=== PATIENT | female | born 1990 | race Caucasian/White ===

== ENCOUNTER 2021-06-03 17:01 | Emergency (ER) | payer MEDICAID ==
--- NOTE | 2021-06-03 17:32 | EDM.PDOC ---
ED HPI GENERAL MEDICAL PROBLEM - General Chief Complaint: General Stated Complaint: COUGH Time Seen by Provider: 06/03/21 17:32 Source of Information: Reports: Patient, RN Notes Reviewed History Limitations: Reports: No Limitations - History of Present Illness INITIAL COMMENTS - FREE TEXT/NARRATIVE: Lucia presents today with complaints of cough and green mucus production for th e past 7 days. She complains of chills and the sweats off and on. she denies SOB, chest pain, dizziness, syncope, palpitations, nausea, vomiting, change in bowel/bladder or other concerns. Lucia denies use of any OTC medications or treatments for her illness. Back Pain Score (Numeric/FACES): 10 - Related Data Allergies Allergy/AdvReac Type Severity Reaction Status Date / Time No Known Allergies Allergy Verified 06/03/21 17:27 Home Meds: Home Meds NK [No Known Home Meds] 06/03/21 [History] Social & Family History - Recreational Drug Use Recreational Drug Use: Yes Drug Use in Last 12 Months: No Recreational Drug Type: Reports: Amphetamines (Speed), Methamphetamine Recreational Drug Last Use: 2 years ago ED ROS GENERAL - Review of Systems Review Of Systems: See Below Constitutional: Reports: Chills, Diaphoresis. Denies: Fever, Malaise, Weakness, Weight Loss HEENT: Denies: Ear Discharge, Ear Pain, Rhinitis, Sinus Problem, Throat Swelling, Vertigo, Vision Change Respiratory: Reports: Wheezing, Cough, Sputum. Denies: Shortness of Breath, Pleuritic Chest Pain, Hemoptysis Cardiovascular: Reports: No Symptoms Endocrine: Reports: No Symptoms GI/Abdominal: Reports: No Symptoms : Reports: No Symptoms Musculoskeletal: Reports: No Symptoms Skin: Reports: No Symptoms Neurological: Reports: No Symptoms Psychiatric: Reports: No Symptoms Hematologic/Lymphatic: Reports: No Symptoms Immunologic: Reports: No Symptoms ED EXAM, GENERAL - Physical Exam Exam: See Below Exam Limited By: No Limitations General Appearance: Alert, WD/WN, Mild Distress Eye Exam: Bilateral Eye: Normal Inspection, PERRL Ears: Normal External Exam, Normal Canal, Hearing Grossly Normal, Normal TMs Nose: Normal Inspection, Normal Mucosa, No Blood Throat/Mouth: Normal Inspection, Normal Lips, Normal Gums, Normal Oropharynx, Normal Voice, No Airway Compromise Head: Atraumatic, Normocephalic Neck: Normal Inspection, Supple, Non-Tender, Full Range of Motion. No: Lymphadenopathy (R), Lymphadenopathy (L) Respiratory/Chest: No Respiratory Distress, Chest Non-Tender, Decreased Breath Sounds, Rales (to RLL), Wheezing (wheezing noted with expiration). No: Rhonchi Cardiovascular: Normal Peripheral Pulses, Regular Rate, Rhythm, No Edema, No Gallop, No Murmur, No Rub Peripheral Pulses: 4+: Radial (L), Radial (R) (Female) Exam: Deferred Back Exam: Normal Inspection, Full Range of Motion. No: CVA Tenderness (R), CVA Tenderness (L) Extremities: Normal Inspection, Normal Range of Motion, Non-Tender, No Pedal Edema, Normal Capillary Refill Neurological: Alert, Oriented, CN II-XII Intact, Normal Cognition, Normal Gait, Normal Reflexes, No Motor/Sensory Deficits Psychiatric: Normal Affect, Normal Mood Skin Exam: Warm, Dry, Intact, Normal Color, No Rash Lymphatic: No Adenopathy Course - Vital Signs Last Recorded V/S: Last Vital Signs Temp 35.7 C L 06/03/21 17:34 Pulse 102 H 06/03/21 17:34 Resp 20 06/03/21 17:34 BP 161/102 H 06/03/21 17:34 Pulse Ox 98 06/03/21 17:34 BP recheck, manual prior to discharge 149/88, HR 98bpm - Orders/Labs/Meds Orders: Active Orders 24 hr Category Date Time Status Chest 2V [CR] Stat Exams 06/03/21 17:55 Taken Labs: Laboratory Tests 06/03/21 06/03/21 06/03/21 Range/Units 18:03 18:06 18:06 WBC 17.7 H (4.5-11.0) K/uL RBC 5.09 (3.30-5.50) M/uL Hgb 14.8 (12.0-15.0) g/dL Hct 44.2 (36.0-48.0) % MCV 87 (80-98) fL MCH 29 (27-31) pg MCHC 34 (32-36) % Plt Count 348 (150-400) K/uL Neut % (Auto) 83.9 H (36-66) % Lymph % (Auto) 8.4 L (24-44) % [place] % (Auto) 7.2 H (2-6) % Eos % (Auto) 0.4 L (2-4) % Baso % (Auto) 0.1 (0-1) % Sodium 135 L (140-148) mmol/L Potassium 4.5 (3.6-5.2) mmol/L Chloride 97 L (100-108) mmol/L Carbon Dioxide 27 (21-32) mmol/L Anion Gap 15.5 H (5.0-14.0) mmol/L BUN 8 (7-18) mg/dL Creatinine 0.8 (0.6-1.0) mg/dL Est Cr Clr Drug Dosing 87.18 mL/min Estimated GFR (MDRD) > 60 (>60) Glucose 93 (74-106) mg/dL Calcium 9.7 (8.5-10.1) mg/dL SARS CoV-2 RNA Rapid GURWINDER Negative Patient lab work discussed with her, she declines chest x-ray at this time. Meds: Medications Discontinued Medications Generic Name Dose Route Start Last Admin Trade Name El PRN Reason Stop Dose Admin Albuterol 0 gm 06/03/21 17:59 06/03/21 18:24 Albuterol 8 Gm Inhaler INH 06/03/21 18:00 2 puff ONETIME ONE Administration - Re-Assessments/Exams Free Text/Narrative Re-Assessment/Exam: Lucia reports use of albuterol inhaler made her cough but she feels like it is a little easier to breathe. She declined any other testing at this time. Vital signs stable. She will be discharged with levofloxacin, albuterol inhaler. Follow up with with a recheck to primary provider in 3 to 5 days. Return for any worsening, issues or concerns. Patient advised to cut down tobacco use and work on cessation, she verbalized understanding. Departure - Departure Time of Disposition: 18:38 Disposition: Home, Self-Care 01 Condition: Good Clinical Impression: Pneumonia - Discharge Information Instructions: Community-Acquired Pneumonia, Adult, [id number] Referrals: PCP,None [Primary Care Provider] - Forms: ED Department Discharge Additional Instructions: You have been evaluated and treated for pneumonia. Drink plenty of fluids to stay hydrated. Take tylenol and ibuprofen as needed for pain/fever. Take cough medicine with mucinex(guaifenesin) every 4 to 6 hours to help with mucus. Albuterol inhaler, 2 puff every 6 hours for breathing. Take levaquin 500mg (lovofloxacin) 1 and 1/2 pills once a day for 7 days. Return for any worsening, issues or concerns. Follow up with primary provider for recheck in 3 to 5 days and as needed. Sepsis Event Note (ED) - Focused Exam Vital Signs: Vital Signs Temp Pulse Resp BP Pulse Ox 06/03/21 17:34 35.7 C L 102 H 20 161/102 H 98 06/03/21 17:15 35.7 C L 102 H 20 161/102 H 98 - My Orders Last 24 Hours: My Active Orders 06/03/21 17:55 Chest 2V [CR] Stat - Assessment/Plan Last 24 Hours: My Active Orders 06/03/21 17:55 Chest 2V [CR] Stat Assessment:: Lucia is an alert and oriented 30 year old female with worsening cough for the past 7 days. Significant tobacco use of 5ppd. Elevated WBC with left shift. COVID19 negative. Additional lab work and chest x-ray offered, patient declined. She will be treated for pneumonia. She will be discharged with levofloxacin, albuterol inhaler. Follow up with with a recheck to primary provider in 3 to 5 days. Return for any worsening, issues or concerns. Patient advised to cut down tobacco use and work on cessation, she verbalized understanding. Plan: Patient evaluated and treated for pneumonia. Drink plenty of fluids to stay hydrated. Take tylenol and ibuprofen as needed for pain/fever. Take cough medicine with mucinex(guaifenesin) every 4 to 6 hours to help with mucus. Albuterol inhaler, 2 puff every 6 hours for breathing. Take levaquin 500mg (lovofloxacin) 1 and 1/2 pills once a day for 7 days. Return for any worsening, issues or concerns. Follow up with primary provider for recheck in 3 to 5 days and as needed.
[2021-06-03] MEDS ORDERED: Albuterol 8 GM Inhaler INH ONE (17:59)
--- NOTE | 2021-06-06 09:16 | CR ---
CHEST: 2 view CLINICAL HISTORY:Cough COMPARISON:None FINDINGS: There is a streaky density in the left lung base. This may represent some scarring or atelectasis. Infiltrate is felt less likely but cannot be excluded. If clinical symptomatology persists or worsens a repeat exam is recommended.
== END 2021-06-03 18:48 | disposition home or self-care (01) ==
LOC: JP.ED 17:01
DX: J18.9 Pneumonia, unspecified organism (principal); Z20.822 Contact with and (suspected) exposure to COVID-19
CPT/HCPCS: 36415; 71046; 80048; 85025; 87635; 94640; 99284; A9270; U0002

== ENCOUNTER 2021-10-29 12:39 | Emergency (ER) | payer MEDICAID ==
[2021-10-29] MEDS: Iopamidol 755 Mg/ML 100 ML Bottle IV ONE (13:21)
[2021-10-29] MEDS: Sodium Chloride 0.9% 75 ML IV SCH (13:21)
[2021-10-29 14:26] LABS: CORONAVIRUS COVID-19 NAA NEGATIVE (NEGATIVE)
[2021-10-29] MEDS: Aspirin 81 MG Tab.Chew PO ONE (15:10)
== END 2021-10-29 15:42 | disposition home or self-care (01) ==
LOC: JP.ED 12:39
DX: I63.9 Cerebral infarction, unspecified (principal); I77.71 Dissection of carotid artery; I72.0 Aneurysm of carotid artery; F15.10 Other stimulant abuse, uncomplicated; Z20.822 Contact with and (suspected) exposure to COVID-19
CPT/HCPCS: 0241U; 36415; 70450; 70496; 70498; 80048; 80305-QW; 81025; 84075; 84450; 84460; 85025; 86140; 93005; 93010; 99285; 99285-25; A9270-GY; Q9967

== ENCOUNTER 2023-03-28 15:33 | Emergency (ER) | payer MEDICAID ==
[2023-03-28 16:21] LABS: BASOPHILS PERCENT AUTO 0.2 % (0.1-1.3); EOSINOPHILS ABSOLUTE AUTO 0.03 K/uL (0.00-0.40); EOSINOPHILS PERCENT AUTO 0.5 % (0.0-5.4); HEMATOCRIT 33.4 % (34.3-46.0); HEMOGLOBIN 10.8 g/dL (11.2-15.5); IMMATURE GRAN PERCENT AUTO 0.4 % (0.0-0.7); LYMPHOCYTES ABSOLUTE AUTO 1.16 K/uL (0.8-3.3); LYMPHOCYTES PERCENT AUTO 21.1 % (11.4-47.7); MEAN CORPUSCULAR HEMOGLOBIN 27.3 pg (31.6-35.5); MEAN CORPUSCULAR HGB CONC 32.3 g/dL (31.6-35.5); MEAN CORPUSCULAR VOLUME 84.3 fL (81.4-99.0); MONOCYTES ABSOLUTE AUTO 0.37 K/uL (0.20-0.90); MONOCYTES PERCENT AUTO 6.7 % (3.3-12.6); NEUTROPHILS ABSOLUTE AUTO 3.92 K/uL (1.0-7.6); NEUTROPHILS PERCENT AUTO 71.1 % (40.0-78.1); PLATELET COUNT,PLT 222 K/uL (130-375); RED BLOOD CELL COUNT 3.96 M/uL (3.77-5.24); WHITE BLOOD CELL COUNT,WBC 5.5 K/uL (3.2-11.0)
[2023-03-28 16:27] LABS: BASOPHILS ABSOLUTE AUTO 0.01 K/uL (0.00-0.10); IMMATURE GRAN ABSOLUTE AUTO 0.02 K/uL (0.00-0.23)
[2023-03-28 16:33] LABS: BILIRUBIN,URINE NEGATIVE (NEGATIVE); COLOR,URINE YELLOW (YELLOW); GLUCOSE,URINE NEGATIVE (NEGATIVE); KETONES,URINE 15 mg/dL (NEGATIVE); LEUKOCYTE ESTERASE,URINE SMALL (NEGATIVE); NITRITE,URINE NEGATIVE (NEGATIVE); OCCULT BLOOD,URINE LARGE (NEGATIVE); PROTEIN,URINE 30 mg/dL (NEGATIVE); UROBILINOGEN,URINE 0.2 EU/dL (0.2-1.0)
[2023-03-28 16:38] LABS: AMPHETAMINES SCREEN, URINE NEGATIVE (NEGATIVE); BARBITURATE SCREEN,URINE NEGATIVE (NEGATIVE); BENZODIAZEPINES SCREEN,URINE NEGATIVE (NEGATIVE); METHADONE SCREEN, URINE NEGATIVE (NEGATIVE); METHAMPHETAMINES SCREEN, URINE PRESUMPTIVE POSITIVE (NEGATIVE); OXYCODONE SCREEN,URINE NEGATIVE (NEGATIVE); PROPOXYPHENE SCREEN,URINE NEGATIVE (NEGATIVE)
[2023-03-28 16:39] LABS: AMORPHOUS SEDIMENT,URINE NOT SEEN; APPEARANCE,URINE CLOUDY (CLEAR); BACTERIA,URINE MANY; EPITHELIAL CELLS,URINE FEW; MUCUS,URINE NOT SEEN; THC SCREEN,URINE 50 NG/ML NEGATIVE (NEGATIVE); WBC,URINE 20-30 (0-5)
[2023-03-28] MEDS ORDERED: droPERidol 5 MG/2 ML SDV IM ONE (16:42)
[2023-03-28] MEDS ORDERED: droPERidol 5 MG/2 ML SDV ONE (16:43)
[2023-03-29] MEDS ORDERED: hydrOXYzine HCl 25 MG Tab PO ONE (11:57)
[2023-03-29] MEDS ORDERED: Gabapentin 300 MG Cap PO ONE (11:57)
[2023-03-29] MEDS ORDERED: buPROPion 150 MG Tab.SR PO ONE (11:57)
[2023-03-29] MEDS ORDERED: Citalopram 20 MG Tab PO ONE (11:57)
[2023-03-29] MEDS ORDERED: Nicotine 21 MG/24 Hr Patch TRDERM ONE (12:29)
== END 2023-03-29 14:42 | disposition home or self-care (01) ==
LOC: JP.ED 15:33
DX: S10.93XA Contusion of unspecified part of neck, initial encounter (principal); R31.21 Asymptomatic microscopic hematuria; F15.10 Other stimulant abuse, uncomplicated; I10 Essential (primary) hypertension; F17.210 Nicotine dependence, cigarettes, uncomplicated; Z20.822 Contact with and (suspected) exposure to COVID-19; X83.8XXA Intentional self-harm by other specified means, initial encounter
CPT/HCPCS: 36415; 80143; 80179; 80305; 80307; 81001; 85025; 87635; 96372; 99285; A9270; J1790; U0002